=== PATIENT | female | born 1945 | race Caucasian/White ===

== ENCOUNTER → 2022-04-10 | Outpatient (CLI) | payer MEDICARE ==
--- NOTE | 2022-04-19 06:14 | HM ---
HOLTER MONITOR REPORT The patient was monitored for 48 hours. The baseline rhythm is sinus mechanism with normal conduction. The average rate was 73 beats per minute, minimum 53, maximum 114 beats per minute. Ventricular ectopic activity was present form rare single PVCs. Supraventricular ectopic activity was present in form of single PACs. There was short burst of nonsustained SVT, rate between 125 and 130 beats per minute. They were asymptomatic. The patient had no symptoms. CONCLUSION: 1. Sinus mechanism baseline rhythm. 2. Rare ventricular ectopic activity. 3. Rare supraventricular ectopic activity with short burst of nonsustained supraventricular tachycardia at a maximum rate of 130, that was asymptomatic. 4. No symptoms were reported. MMODL / IJN: [id number] /
== END | disposition home or self-care (01) ==
LOC: RADECHMAIN 11:51
PROVIDERS: ATTEND Family Medicine
DX: I47.1 Supraventricular tachycardia (principal); E03.9 Hypothyroidism, unspecified
CPT/HCPCS: 93225; 93226

== ENCOUNTER → 2022-08-29 | Outpatient (CLI) | payer MEDICARE ==
--- NOTE | 2022-09-02 08:28 | MM ---
Reason for Exam: Screening (asymptomatic). Last mammogram was performed 3 year(s) and 6 month(s) ago. Patient History: Menarche at age 13. First Full-Term at age 21. Risk Values: Paula 5 year model risk: 1.6%. NCI Lifetime model risk: 3.4%. Prior Study Comparison: 09/24/2015 Bilateral MG screening mammo w CAD - 2, [facility]. 01/11/2019 Bilateral MG screening mammo w CAD - 2, [facility] [place]. 02/21/2019 Right MG diagnostic mammo RT w CAD - 2, [facility] [place]. Tissue Density: There are scattered fibroglandular densities. Findings: Analyzed By CAD. There is no suspicious group of microcalcifications. No new suspicious mass within the right breast. Asymmetry demonstrated within the inner left breast posterior depth. Benign round appearing calcifications within both breasts. Overall Assessment: Incomplete: need additional imaging evaluation, BI-RAD 0 Management: Diagnostic Mammogram of the left breast. A clinical breast exam by your physician is recommended on an annual basis and results should be correlated with mammographic findings. [facility] will attempt to contact patient to return for supplemental views and ultrasound if indicated. Electronically signed and approved by: Ricky Coleman D.O.
== END | disposition home or self-care (01) ==
LOC: RADMAMWWP 11:14
PROVIDERS: ATTEND Family Medicine
DX: Z12.31 Encounter for screening mammogram for malignant neoplasm of breast (principal)
CPT/HCPCS: 77067

== ENCOUNTER → 2022-09-04 | Outpatient (CLI) | payer MEDICARE ==
--- NOTE | 2022-09-04 13:45 | MM ---
Reason for Exam: Additional evaluation requested from abnormal screening. Last screening mammogram was performed less than 1 month ago. Patient History: Menarche at age 13. First Full-Term at age 21. Patient has history of breast feeding. Risk Values: Paula 5 year model risk: 1.6%. NCI Lifetime model risk: 3.4%. Prior Study Comparison: 09/24/2015 Bilateral MG screening mammo w CAD - 2, [facility]. 01/11/2019 Bilateral MG screening mammo w CAD - 2, [facility] [place]. 02/21/2019 Right MG diagnostic mammo RT w CAD - 2, [facility] [place]. 08/29/2022 Bilateral MG screening mammo w CAD, [facility]. Tissue Density: Left: There are scattered fibroglandular densities. Findings: Analyzed By CAD. Faint nodular asymmetric density far posterior inner CC view becomes less defined on spot compression views. Again, no correlate on the true lateral view. Short interval follow-up recommended. Overall Assessment: Probably benign, BI-RAD 3 Management: Diagnostic Mammogram of the left breast in 6 months. 1. Patient should continue monthly self breast exams. 2. A clinical breast exam by your physician is recommended on an annual basis. 3. This exam should not preclude additional follow-up of suspicious palpable abnormalities. Results were given to the patient verbally at the time of exam. Electronically signed and approved by: Sandra Madsen M.D. Radiologist
== END | disposition home or self-care (01) ==
LOC: RADMAMWWP 12:51
PROVIDERS: ATTEND Family Medicine
DX: R92.8 Other abnormal and inconclusive findings on diagnostic imaging of breast (principal)
CPT/HCPCS: 77065

== ENCOUNTER → 2022-11-18 | Outpatient (CLI) | payer MEDICARE, OTHER ==
--- NOTE | 2022-11-19 09:17 | CA ---
Transthoracic Echo Report Name: Anna Couch Age: 76 Gender: F : 1945 Exam Date: 11/18/2022 12:45 Exam Location: [facility] Ht (in): 58 Wt (lb): 180 Ordering Physician: Hiro Mojica DO Attending/Referring Phys: Debbie Jean PAC Pipe Liner Louann Smith RDCS Procedure CPT: Indications: R00.2 Cardiac Hx: Technical Quality: Good Contrast 1: Total Dose (mL): Contrast 2: Total Dose (mL): MEASUREMENTS (Male / Female) Normal Values 2D ECHO LV Diastolic Diameter PLAX 3.6 cm 4.2 - 5.9 / 3.9 - 5.3 cm LV Systolic Diameter PLAX 2.8 cm IVS Diastolic Thickness 0.9 cm 0.6 - 1.0 / 0.6 - 0.9 cm LVPW Diastolic Thickness 1.1 cm 0.6 - 1.0 / 0.6 - 0.9 cm LV Relative Wall Thickness 0.5 RV Internal Dim ED PLAX 3.0 cm LA Systolic Diameter LX 3.6 cm 3.0 - 4.0 / 2.7 - 3.8 cm LV Diastolic Volume MOD 4C 73.3 cm??? LV Systolic Volume MOD 4C 33.0 cm??? LV Ejection Fraction MOD 4C 54.9 % LV Diastolic Length 4C 7.1 cm LV Systolic Length 4C 5.4 cm LV Diastolic Volume MOD 2C 48.8 cm??? LV Systolic Volume MOD 2C 22.7 cm??? LV Ejection Fraction MOD 2C 53.5 % LV Diastolic Length 2C 6.9 cm LV Systolic Length 2C 5.8 cm LA Volume 31.7 cm??? 18 - 58 / 22 - 52 cm??? M-MODE Aortic Root Diameter MM 2.9 cm MV E Point Septal Separation 0.7 cm AV Cusp Separation MM 1.7 cm DOPPLER AV Peak Velocity 136.6 cm/s AV Peak Gradient 7.5 mmHg MV Area PHT 4.3 cm??? Mitral E Point Velocity 78.3 cm/s Mitral A Point Velocity 113.3 cm/s Mitral E to A Ratio 0.7 MV Deceleration Time 175.5 ms MV E' Velocity 7.6 cm/s Mitral E to MV E' Ratio 10.2 TR Peak Velocity 233.8 cm/s TR Peak Gradient 21.9 mmHg Right Ventricular Systolic Press 26.5 mmHg FINDINGS Left Ventricle Left ventricular ejection fraction is estimated at 55-60 %. Small left ventricular cavity. Left ventricular wall thickness normal. No obvious regional wall motion abnormalities. Right Ventricle Normal right ventricular size and function. Right ventricular systolic pressure within normal limits. Right Atrium Normal right atrial size. Left Atrium Normal left atrial size. Mitral Valve Mitral valve thickened. Trace to mild mitral regurgitation. Aortic Valve Trileaflet aortic valve. No aortic stenosis. No aortic regurgitation. Focal thickening of the aortic valve cusps. Tricuspid Valve Structurally normal tricuspid valve. Mild tricuspid regurgitation. Pulmonic Valve Structurally normal pulmonic valve. No pulmonic regurgitation. Pericardium Normal pericardium. No pericardial effusion. Aorta Normal size aortic root and proximal ascending aorta. CONCLUSIONS Left ventricular ejection fraction 55-60% Trace to mild mitral regurgitation Mild tricuspid regurgitation No pericardial effusion Previewed by: Dr. Naun Shields DO (Electronically Signed) Final Date: 19 November 2022 09:16
== END | disposition home or self-care (01) ==
LOC: RADECHMAIN 12:36
PROVIDERS: ATTEND Family Medicine
DX: I08.1 Rheumatic disorders of both mitral and tricuspid valves (principal); R00.2 Palpitations; R53.1 Weakness; R53.83 Other fatigue
CPT/HCPCS: 93306

== ENCOUNTER → 2023-12-29 | Outpatient (CLI) | payer MEDICARE, OTHER ==
--- NOTE | 2023-12-29 13:42 | MM ---
Reason for Exam: Follow-up at short interval from prior study. Last mammogram was performed 1 year(s) and 4 month(s) ago. Patient History: Menarche at age 13. First Full-Term at age 21. Postmenopausal. Patient has history of breast feeding. Risk Values: Paula 5 year model risk: 1.6%. NCI Lifetime model risk: 3.2%. Prior Study Comparison: 08/29/2022 Bilateral MG screening mammo w CAD, [facility]. 09/04/2022 Left MG work up mamm w CAD LT, [facility]. 05/19/2023 Left MG 3D diag mammo w/cad LT, [facility]. Tissue Density: There are scattered areas of fibroglandular density. Findings: Analyzed By CAD. The previously questioned nodule posterior central left cc view there is some apparent only on the 3-D images and localizes to the breast undersurface compatible with a mole. No significant change from prior exams. Faint benign vascular calcifications on the right. Overall Assessment: Benign, BI-RAD 2 Management: Screening Mammogram of both breasts in 1 year. . Results were given to the patient verbally at the time of exam. Patient should continue monthly self-breast exams. A clinical breast exam by your physician is recommended on an annual basis. This exam should not preclude additional follow-up of suspicious palpable abnormalities. Note on Paula scores and lifetime risk: 1. A Paula score greater than 3% is considered moderate risk. If this is the case, consider specialist referral to assess eligibility for a risk reducing agent. 2. If overall lifetime risk for the development of breast cancer is 20% or higher, the patient may qualify for future screening with alternating mammogram and breast MRI. Electronically signed and approved by: Sandra Madsen M.D. Radiologist
== END | disposition home or self-care (01) ==
LOC: RADMAMWWP 13:09
PROVIDERS: ATTEND Family Medicine
DX: R92.323 Mammographic fibroglandular density, bilateral breasts (principal); R92.1 Mammographic calcification found on diagnostic imaging of breast; Z78.0 Asymptomatic menopausal state
CPT/HCPCS: 77062; 77066